=== PATIENT | female | born 1930 | race Caucasian/White ===

== ENCOUNTER 2018-01-28 07:58 | Emergency (ER) | payer MEDICARE, OTHER ==
[~2018-01-28] VITALS: Ht 154.9 cm; Wt 77.1 kg
[~2018-01-28 07:58] MED LIST: APIX5TAB PO; CLON0.5T4 PO; ESCI20TA PO; ICOS1CAP PO; LORA10TA7 PO; LOSA25TA13 PO; MEMA28CA PO; METO25TA6 PO
--- NOTE | 2018-01-28 08:33 | NUR ---
Patient discharged to home in stable conditon. Written and verbal after care instructions given. Patient verbalizes understanding of instructions.pt walks in steady gait, breathing normally. pt with daughter
== END 2018-01-28 08:35 | disposition home or self-care (01) ==
LOC: ER 07:58
DX: R05 Cough (principal); R09.81 Nasal congestion; I11.0 Hypertensive heart disease with heart failure; I50.9 Heart failure, unspecified; I48.91 Unspecified atrial fibrillation; E78.00 Pure hypercholesterolemia, unspecified; Z79.899 Other long term (current) drug therapy
CPT/HCPCS: 99283; A4663